=== PATIENT | female | born 1930 | race Caucasian/White ===

== ENCOUNTER 2016-12-14 05:36 | Inpatient (IN) | payer MEDICARE, OTHER ==
[2016-12-07 16:09] LABS: BASOPHILS 0.3 %; BASOPHILS ABSOLUTE 0.03 10/3/uL (0.0-0.16); EOSINOPHILS 1.2 %; EOSINOPHILS ABSOLUTE 0.12 10/3/uL (0.0-0.53); IMMATURE GRANULOCYTES 0.2 %; IMMATURE GRANULOCYTES ABSOLUTE 0.02 10/3/uL (0.0-0.11); LYMPHOCYTES 22.6 %; MEAN CORPUS HGB CONC 32.4 g/dL (32.0-36.0); MEAN CORPUSCULAR HEMOGLOB 29.5 pg (26.0-34.0); MEAN PLATELET VOLUME 9.5 fL (9.2-13.0); MONOCYTES 8.7 %; MONOCYTES ABSOLUTE 0.89 10/3/uL (0.21-1.20); NEUTROPHILS ABSOLUTE 6.82 10/3/uL (2.02-8.40); PLATELET COUNT 356 10/3/uL (150-400); RBC DISTRIBUTION WIDTH 13.6 % (12.0-16.0); RED CELL COUNT 4.31 10/6/uL (4.0-5.6); WHITE BLOOD CELLS 10.2 10/3/uL (4.5-10.5)
[2016-12-07 16:12] LABS: HEMATOCRIT 39.2 % (36.0-48.0); HEMOGLOBIN 12.7 g/dL (12.0-16.0); MANUAL DIFF NO %
[2016-12-07 16:15] LABS: PARTIAL THROMBO TIME 30.3 SEC (22.5-37.2); PROTIME (NOT ORD) 13.5 SEC (12.0-14.5)
[2016-12-07 16:36] LABS: A/G RATIO 1.2 (0.7-1.9); ALBUMIN 3.8 G/DL (3.5-5.0); CHLORIDE, SERUM 101 MMOL/L (96-112); CO2 (CARBON DIOXIDE) 29 MMOL/L (24-34); CREATININE 0.97 MG/DL (0.55-1.02); GFR AFRICAN AMERICAN 61 ML/MIN (>=60); GFR NON AFRICAN AMERICAN 53 ML/MIN (>=60); GLOBULIN 3.1 G/DL (2.5-4.1); POTASSIUM, SERUM 3.8 MMOL/L (3.5-5.3); SGOT(AST) 14 U/L (5-40); SGPT(ALT) 16 U/L (5-65); SODIUM, SERUM 138 MMOL/L (135-148); TOTAL BILIRUBIN 0.3 MG/DL (0-1.2); TOTAL PROTEIN 6.9 G/DL (6.0-8.5)
[2016-12-07 16:39] LABS: ALKALINE PHOSPHATASE 120 U/L (45-117); BUN (BLOOD UREA NITROGEN) 23 MG/DL (6-23); CALCIUM, SERUM 8.8 MG/DL (8.5-10.4); GLUCOSE, SERUM 87 MG/DL (60-99)
[2016-12-07 17:19] LABS: ASCORBIC ACID (UR NOT ORDER) NEG (NEG); BILIRUBIN, URINE NEGATIVE (NEG); KETONE, URINE NEGATIVE (NEG); LEUKOCYTE ESTERASE(NOT OR NEG (NEG); WBC (NOT ORDERED) (RFLEX) 0 (0-5)
--- NOTE | ~2016-12-14 | OP ---
Record Of Operation [facility] [address] [place]. [address] NAME: ALFONSO PICKARD : 30 STATUS : ADM IN PAT#: [id number] AGE: 86 ADM/REG DATE : 12/14/16 MR#: [id number] REPORT SERV DATE: 12/14/16 DICTATED BY: PRAMOD JJ DATE: 12/14/16 REPORT STATUS : Draft TRANSCRIBED BY: MODL DATE: 12/14/16 DATE OF PROCEDURE: 12/14/2016 PREOPERATIVE DIAGNOSIS: Severe osteoarthritis of the left hip. POSTOPERATIVE DIAGNOSIS: Severe osteoarthritis of the left hip. PROCEDURE: Left total hip arthroplasty. SURGEON: Pramod Jj M.D. JUKE BOX MECHANIC: Loni Kiser. ANESTHESIA: Spinal with MAC. ESTIMATED BLOOD LOSS: 300 mL. COMPLICATIONS: None. DRAINS: ConstaVac x1. IMPLANTS: DePuy Tenafly 54 mm outer diameter cup with a 36 mm inner diameter, +4 lateralized polyethylene liner. The femoral component was size 7 high offset Dupree stem with a 36 mm, +5 head and neck segment. INDICATIONS FOR SURGERY: Ms Pickard is an 86-year-old female, with severe osteoarthritis of her left hip. She has had unremitting pain, which has been refractory to medical management. She presents requesting the above-mentioned procedure. Risks of the procedure as detailed in the history and physical, and operative consent were discussed prior to proceeding. She fully understood and has requested to proceed. DESCRIPTION OF PROCEDURE: The patient was brought to the operating room and after adequate induction of anesthesia, was positioned in the lateral decubitus position using the hip supervisor frame assembly positioners. All appropriate pressure points were padded and axillary roll was placed. The appropriate operative site was identified and confirmed by both the surgeon and the operating room staff in time out. The hip was then prepped and draped in the usual sterile fashion. A posterior lateral approach to the hip was performed. The skin and subcutaneous tissues were incised sharply using a #10 blade. Electrocautery was used as needed to maintain hemostasis. The fascia pilar and fascia over the gluteus erum were divided in line with the incision. The fibers of the gluteus erum were split bluntly. The sciatic nerve was identified and carefully protected throughout the remainder of the case. The Charnley retractor was then placed. The hip was placed in internal rotation and the superior border of the piriformis tendon identified. A full thickness capsulotomy was begun Record Of Operation [place] [id number] [facility] [place]. [address] NAME: ALFONSO PICKARD : 30 STATUS : ADM IN PAT#: [id number] AGE: 86 ADM/REG DATE : 12/14/16 MR#: [id number] REPORT SERV DATE: 12/14/16 DICTATED BY: PRAMOD JJ DATE: 12/14/16 REPORT STATUS : Draft TRANSCRIBED BY: MARIELA DATE: 12/14/16 at the superior border of the piriformis tendon and extended anteriorly/inferiorly using an inside/out technique. A portion of the short external rotators were taken down in the capsular exposure. Leg length measurements were then taken. The hip was then dislocated posteriorly. The femoral neck was then marked and resected at the predetermined level from templating using an oscillating saw. Attention was then turned to the femur and the medial aspect of the greater trochanter was debrided of all cortical bone and soft tissue. The intramedullary canal was opened with a triple reamer. The femur was then sequentially reamed to the appropriate size Dupree stem. The femur was then sequentially broached, once again to the appropriately sized implant. The femoral neck resection was slightly revised using a calcar mill to bring it to the level of the femoral broach. The broach was then removed. Attention was then turned to the acetabulum and the acetabulum was debrided of all labral remnants, osteophytes, and the medial fibrofatty tissue was debrided and the true medial wall of the acetabulum identified. The acetabulum was then sequentially reamed from a size 43 mm hemispherical reamer to a reamer 1 mm smaller than the final component. At this level there was circumferential bleeding of subchondral bony surface. Any subchondral cysts were curetted. The true acetabular cup was then impacted into the acetabulum and a trial liner placed. A trial reduction was then performed. The leg lengths were felt to be equal. The hip was stable at its limited extension and external rotation and to 90 degrees of flexion and 80 degrees of internal rotation. The hip was also stable in the position of sleep. At this point all trial components were removed and the acetabular hole dog hair clipper placed in the acetabular shell. The true acetabular liner was then impacted in the clean acetabular shell. The femoral canal was then copiously irrigated with normal saline and suctioned dry. The true femoral stem was then impacted into the femur to an identical depth and identical anteversion of the trial component. A trial reduction was once again performed to assure that there was no change in leg length or stability. The true femoral head ball was then impacted into the clean femoral taper. The acetabulum was inspected to be sure it was free of all foreign matter and the hip reduced. The wound was copiously irrigated with pulsatile lavage and normal saline. The capsule was repaired using interrupted #1 Vicryl suture in [id number] fashion. The short external rotators were repaired using #5 Ethibond in horizontal mattress fashion. Drain placed deep to the fascia. The fascia was closed with interrupted #5 Ethibond sutures in [id number] fashion. The subcutaneous tissues approximated with interrupted 2-0 Vicryl suture and the skin stapled. Sterile dressing applied. The patient awakened and taken to the recovery room in stable condition. POSTOP PLAN: The patient is to be mobilized weightbearing as tolerated with physical therapy. Posterior hip dislocation precautions. The patient is to be on Coumadin and mechanical deep venous thrombosis prophylaxis. Record Of Operation [facility] [address] [facility] [place]. [address] NAME: ALFONSO PICKARD : 30 STATUS : ADM IN [facility]#: [id number] AGE: 86 ADM/REG DATE : 12/14/16 MR#: [id number] REPORT SERV DATE: 12/14/16 DICTATED BY: PRAMOD JJ DATE: 12/14/16 REPORT STATUS : Draft TRANSCRIBED BY: MARIELA DATE: 12/14/16 DIONY/MARIELA Pramod Jj M.D. / [id number] CC: Pramod Jj M.D.
--- NOTE | ~2016-12-14 | CN ---
Consultation Report [address] [place]. [address] NAME: ALFONSO PICKARD : 30 STATUS : ADM IN PAT#: [id number] AGE: 86 ADM/REG DATE : 12/14/16 MR#: [id number] REPORT SERV DATE: 12/15/16 DICTATED BY: TC RAO. DATE: 12/14/16 REPORT STATUS : Draft TRANSCRIBED BY: MODL DATE: 12/14/16 CARDIOLOGY CONSULTATION NOTE. DATE OF CONSULTATION: 12/14/2016 FORMER [employer] LEAD DEVELOPER: Anshul Frazier M.D. CHIEF COMPLAINT: None. REASON FOR CONSULTATION: Atrial fibrillation at the end of hip surgery today. SOURCE: The patient, her daughter, and the chart. HISTORY OF PRESENT ILLNESS: Ms Pickard is a very pleasant 86-year-old white woman, who was admitted this morning for elective left total hip replacement for arthritis that reportedly went pretty well, but she "went into an irregular rhythm at the end of the surgery." She was given medication and converted back to normal rhythm. She has not had any chest pain, shortness of breath, palpitations when she woke up or subsequently. She has not had any syncope or dizziness. No swelling. She does have some left hip discomfort. She is fatigued from the day. REVIEW OF SYSTEMS: All other systems are negative. ALLERGIES: NO KNOWN DRUG ALLERGIES. HOME MEDICATIONS: 1. Acetaminophen. 2. Amlodipine. 3. Ascorbic acid. 4. Aspirin. 5. Azithromycin. 6. B complex. 7. Cholecalciferol. 8. Cyanocobalamin. 9. Iron. 10.Glucosamine. 11.Guaifenesin. 12.Losartan. 13.Multivitamins. 14.Prednisone. CARDIAC RISK FACTORS: Hypertension, cholesterol, former tobacco. Denies diabetes or family history. Consultation Report [facility] [id number] [place]. [address] NAME: ALFONSO PICKARD : 30 STATUS : ADM IN PAT#: [id number] AGE: 86 ADM/REG DATE : 12/14/16 MR#: [id number] REPORT SERV DATE: 12/15/16 DICTATED BY: TC RAO. DATE: 12/14/16 REPORT STATUS : Draft TRANSCRIBED BY: MODL DATE: 12/14/16 SOCIAL HISTORY: The patient lives in [place], [place]. She is and retired. She has one daughter who is alive and well. She had two still births. FAMILY HISTORY: Negative for coronary artery disease at young age. PAST MEDICAL HISTORY: Significant for seeing Dr. Frazier in 2007 for chest pain. After her , she reportedly had a stress test which was "okay" as per the patient and she was dismissed. She has not had any heart rhythm problems or any strokes status post right total hip replacement in August 2016, fractured both wrists at separate times with surgeries bilaterally, cyst on her lumbar spine removed in 2003, right knee surgery, cataract surgery both eyes. PHYSICAL EXAMINATION: GENERAL: She is a well-developed, well-nourished, very elderly white woman, in no acute distress. VITAL SIGNS: Blood pressure is 131/61, pulse 48, temperature 93.5, weight is 56 kg, and height is 157 cm. HEENT: Sclerae anicteric. Lips without cyanosis. Carotids 2+ and symmetrical. No bruits. No JVD. No thyromegaly. LUNGS: Clear to auscultation. No use of accessory muscles. HEART: Regular rate and rhythm without murmur, gallop, or rub. ABDOMEN: Positive bowel sounds. Soft and nontender. EXTREMITIES: Pulses 2+ and symmetrical. No cyanosis, clubbing, or edema. There is a bandage on left hip with a drain. BACK: No CVA tenderness. MUSCULOSKELETAL: Good tone. NEURO: Alert and oriented x3. DIAGNOSTIC DATA: The EKGs now reveal sinus bradycardia with first-degree AV block, left anterior fascicular block, voltage for LVH, nonspecific ST-T wave changes. Earlier today, she had atrial fibrillation with rapid ventricular response, left axis deviation, infero and anterolateral ST-T wave changes consistent with ischemia. LABORATORY EXAMINATION: Urinalysis: Specific gravity 1.009, pH 7.0, dip negative. Sodium 138, potassium 3.8, chloride 101, CO2 of 29, glucose 87, BUN 23, and creatinine 0.97. White count is 10.2, hemoglobin 12.7, hematocrit 39.2, and platelets 356,000. INR 1.0. PTT of 30.3. Chest x-ray, PA and lateral, mild left basilar atelectasis, otherwise, no acute cardiopulmonary abnormality. Stable atherosclerotic change of the thoracic aorta. Stable thoracolumbar scoliosis. Consultation Report [facility] [address] [place]. [address] NAME: ALFONSO PICKARD : 30 STATUS : ADM IN PAT#: [id number] AGE: 86 ADM/REG DATE : 12/14/16 MR#: [id number] REPORT SERV DATE: 12/15/16 DICTATED BY: TC RAO DATE: 12/14/16 REPORT STATUS : Draft TRANSCRIBED BY: MARIELA DATE: 12/14/16 IMPRESSION: 1. Paroxysmal atrial fibrillation, now in sinus rhythm on diltiazem drip at 5. 2. CHADS2 score of 2 for hypertension and age greater than 75. 3. Status post left hip replacement surgery today for arthritis. 4. Hypertension, currently under fair control. 5. Hyperlipidemia, the patient reports that she had muscle aches on statins in the past and declines statin therapy. RECOMMENDATIONS: 1. Change IV to oral diltiazem. 2. Stop amlodipine. 3. Check echocardiogram. 4. Check TSH and free T4. 5. Anticoagulation with Coumadin as per Surgical Team. 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 This was discussed with the patient and daughter, she agrees to take it for short term, but she is not sure whether she would continue this halfway at this time. ADELA/MARIELA Tc Rao M.D. / [id number] CC: Jesenia Sharif D.O.
[~2016-12-14 05:36] MED LIST: 8 HOUR650 MG PO; ACET500CAP PO; ASAB PO; AZO-CRANBERY450 MG OR; B12250T PO; C25 PO; COZ25 PO; CYANO1000T PO; FESO4 PO; FISH-EPA1000 MG PO; FOLIC PO; GLUCCHONDR PO; GLUCOSAMINEPO PO; LOTE20 PO; M-CLEAR WC PO; MVI PO; NORCO1 TA1 PO; NORV5 PO; STERAP512; TYLENOL PM PO; VITAMIN B PO; VITAMIN D31000 UNIT PO; VITC500 PO; ZITH250 PO; ZOCOR20 PO
[2016-12-15 06:17] LABS: INTERNATIONAL NORMAL RATI 1.2 UNITS (-); PROTIME (NOT ORD) 14.9 SEC (12.0-14.5)
[2016-12-15 06:18] LABS: HEMATOCRIT 29.3 % (36.0-48.0); HEMOGLOBIN 9.8 g/dL (12.0-16.0)
[2016-12-15 06:43] LABS: BUN (BLOOD UREA NITROGEN) 17 MG/DL (6-23); CALCIUM, SERUM 7.9 MG/DL (8.5-10.4); CHLORIDE, SERUM 103 MMOL/L (96-112); CO2 (CARBON DIOXIDE) 24 MMOL/L (24-34); CREATININE 0.92 MG/DL (0.55-1.02); FREE T4 1.09 NG/DL (0.76-1.46); GFR AFRICAN AMERICAN 65 ML/MIN (>=60); GFR NON AFRICAN AMERICAN 56 ML/MIN (>=60); GLUCOSE, SERUM 149 MG/DL (60-99); SODIUM, SERUM 136 MMOL/L (135-148)
[2016-12-16 08:49] LABS: HEMATOCRIT 31.3 % (36.0-48.0); HEMOGLOBIN 10.7 g/dL (12.0-16.0)
[2016-12-16 09:05] LABS: INTERNATIONAL NORMAL RATI 1.4 UNITS (-); PROTIME (NOT ORD) 16.6 SEC (12.0-14.5)
[2016-12-16] MEDS ORDERED: CARDCD180 PO (12:55)
[2016-12-16] MEDS ORDERED: C25 (12:58)
[2016-12-16] MEDS ORDERED: NORCO1 TA1 PO (13:05)
== END 2016-12-16 14:00 | disposition home or self-care (01) | DRG 470 ==
LOC: SDC/OF 05:36 → PACU 09:13 → 1SO 10:32
PROVIDERS: Specialist
PROC: 0SRB02A Replacement of Left Hip Joint with Metal on Polyethylene Synthetic Substitute, Uncemented, Open Approach (ICD-10-PCS; principal; 2016-12-14 06:30)
DX: M16.12 Unilateral primary osteoarthritis, left hip (principal); I97.89 Other postprocedural complications and disorders of the circulatory system, not elsewhere classified; M41.85 Other forms of scoliosis, thoracolumbar region; I48.0 Paroxysmal atrial fibrillation; I10 Essential (primary) hypertension; Y83.8 Other surgical procedures as the cause of abnormal reaction of the patient, or of later complication, without mention of misadventure at the time of the procedure; I44.0 Atrioventricular block, first degree; E78.5 Hyperlipidemia, unspecified; Z79.82 Long term (current) use of aspirin; Z79.899 Other long term (current) drug therapy; Z87.891 Personal history of nicotine dependence
CPT/HCPCS: 36415; 71020; 72170; 80048; 80053; 81001; 84439; 84443; 85014; 85018; 85025; 85610; 85730; 86850; 86870; 86900; 86901; 86902; 86920; 86922; 87641; 88304; 88311; 93005; 93306; 97110-GP; 97116-GP; 97161-GP; 97165-GO; 97530-GO; A9270-GY; C1776; G8987-CJ-GO; G8988-CH-GO; J0690; J2370; J2405; J3010